=== PATIENT | male | born 1985 | race Caucasian/White ===

== ENCOUNTER 2017-04-13 11:11 | Emergency (ER) | payer BC ==
[2017-04-13] MEDS ORDERED: LIDOCAINE 1% 2 ML VIAL ONE (11:54)
--- NOTE | 2017-04-13 12:03 | ED Physician Documentation ---
PD HPI UPPER EXT INJURY - Stated complaint Stated Complaint: LEFT FINGER LAC - Chief complaint Chief Complaint: Laceration - History obtained from History obtained from: Patient - History of Present Illness Location: Left, Finger (ring) Type of injury: Laceration Where injury occurred: Home Timing - onset: Today Timing - duration: Minutes Timing - details: Abrupt onset, Still present Improved by: Rest, Immobilization Worsened by: Moving, Palpating Similar symptoms before: Has not had sx before Recently seen: Not recently seen - Additonal information Additional information: 31-year-old male was using a knife to cut a hose and his hand slipped and he lacerated the dorsal surface of his left ring finger. Review of Systems Constitutional: denies: Fever Respiratory: denies: Cough GI: denies: Vomiting Skin: reports: Laceration (s) Musculoskeletal: reports: Extremity pain. denies: Neck pain, Back pain PD PAST MEDICAL HISTORY - Past Medical History Past Medical History: Yes Other Past Medical History: sleep apnea - Past Surgical History Past Surgical History: Yes Ortho: Other - Present Medications Home Medications: Ambulatory Orders Medication Instructions Recorded Confirmed traMADol [Ultram] 50 mg PO DAILY 04/13/17 04/13/17 - Allergies Allergies/Adverse Reactions: Allergies Allergy/AdvReac Type Severity Reaction Status Date / Time Sulfa (Sulfonamide Allergy Hives Verified 04/13/17 11:18 Antibiotics) - Social History Does the pt smoke?: No Smoking Status: Never smoker Does the pt drink ETOH?: Yes ETOH Use: Beer, Liquor Does the pt have substance abuse?: No - Immunizations Immunizations are current?: Yes - POLST Patient has POLST: No PD ED PE NORMAL - Vitals Vital signs reviewed: Yes (tachy and hypertensive) - General General: Alert and oriented X 3, No acute distress, Well developed/nourished - HEENT HEENT: Atraumatic, PERRL - Neck Neck: Supple, no meningeal sign - Respiratory Respiratory: No respiratory distress - Derm Derm: Normal color, Warm and dry, No rash - Extremities Extremities: No deformity, No edema, Other (There is a 2 cm laceration over the dorsal surface of the left ring finger over the PIP. The laceration is a flap it does not involve deeper structures in the distal neurovascular components are intact.) - Neuro Neuro: Alert and oriented X 3 Eye Opening: Spontaneous Motor: Obeys Commands Verbal: Oriented GCS Score: 15 - Psych Psych: Normal mood, Normal affect Results - Vitals Vitals: Vital Signs - 24 hr 04/13/17 04/13/17 11:15 12:20 Temperature 36.2 C L Heart Rate 115 H 91 Respiratory 18 20 Rate Blood Pressure 161/94 H 109/46 L O2 Saturation 97 97 Procedures - Laceration (location) left ring finger Length in cm: 2 Wound type: Irregular, Flap Neurovascular status: Sensory intact, Motor intact, Vascular intact Anesthesia: Lidocaine 1% Wound Preparation: Hibiclens, Irrigated copiously NS, Wound explored, To the base Skin layer closure: Nylon, Interrupted, Size #-0 - enter number ([id number]) Other: Patient tolerated well, No complications, Neurovascular intact, Dressing applied, Tetanus UTD Complexity: Simple PD MEDICAL DECISION MAKING - ED course Complexity details: considered differential, d/w patient ED course: 31-year-old male with a laceration to his finger has sutures placed will have him in place for 10 days. Departure - Departure Disposition: 01 Home, Self Care Clinical Impression: Finger laceration Qualifiers: Encounter type: initial encounter Finger: ring finger Damage to nail status: without damage Foreign body presence: without foreign body Laterality: left Qualified Code(s): S61.215A - Laceration without foreign body of left ring finger without damage to nail, initial encounter Instructions: ED Laceration Hand Follow-Up: Key Barros PA [Primary Care Provider] - Comments: Today in the Emergency Department your blood pressure was elevated. This can happen from the stress of the visit itself, from a current illness or circumstance or from uncontrolled hypertension. If you take blood pressure medications take your usual mediations, have your blood pressure re-checked in an appropriate setting and follow up any elevation with your primary care doctor. These sutures will need to be removed in 10 days. Discharge Date/Time: 04/13/17 12:21
[2017-04-13 12:21] VITALS: BP 109/46
== END 2017-04-13 12:21 | disposition home or self-care (01) ==
LOC: ED 11:11
DX: S61.215A Laceration without foreign body of left ring finger without damage to nail, initial encounter (principal); W26.0XXA Contact with knife, initial encounter; Y92.019 Unspecified place in single-family (private) house as the place of occurrence of the external cause; R03.0 Elevated blood-pressure reading, without diagnosis of hypertension
CPT/HCPCS: 12001; 99283

== ENCOUNTER 2020-05-19 19:34 | Outpatient (CLI) | payer BC | END 2020-05-19 19:35 | disposition home or self-care (01) | LOC: COV 19:34 | PROVIDERS: ATTEND Family Medicine | DX: Z20.822 Contact with and (suspected) exposure to COVID-19 (principal) ==

== ENCOUNTER 2020-11-17 14:25 | Outpatient (CLI) | payer OTHER | END 2020-11-17 14:26 | disposition home or self-care (01) | LOC: CAM 14:25 | PROVIDERS: ATTEND Internal Medicine | DX: R51.9 Headache, unspecified (principal) | CPT/HCPCS: 97810; 97811 ==

== ENCOUNTER 2020-11-24 14:12 | Outpatient (CLI) | payer OTHER | END 2020-11-24 14:13 | disposition home or self-care (01) | LOC: CAM 14:12 | PROVIDERS: ATTEND Internal Medicine | DX: R51.9 Headache, unspecified (principal) | CPT/HCPCS: 97810; 97811 ==

== ENCOUNTER 2020-11-29 15:28 | Outpatient (CLI) | payer BC | END 2020-11-29 15:29 | disposition home or self-care (01) | LOC: COV 15:28 | PROVIDERS: ATTEND Family Medicine | DX: Z20.822 Contact with and (suspected) exposure to COVID-19 (principal) ==

== ENCOUNTER 2020-12-08 15:10 | Outpatient (CLI) | payer OTHER | END 2020-12-08 15:11 | disposition home or self-care (01) | LOC: CAM 15:10 | PROVIDERS: ATTEND Internal Medicine | DX: R51.9 Headache, unspecified (principal) | CPT/HCPCS: 97810; 97811 ==

== ENCOUNTER 2020-12-15 15:37 | Outpatient (CLI) | payer OTHER | END 2020-12-15 15:38 | disposition home or self-care (01) | LOC: CAM 15:37 | PROVIDERS: ATTEND Internal Medicine | DX: R51.9 Headache, unspecified (principal) | CPT/HCPCS: 97810; 97811 ==

== ENCOUNTER 2020-12-29 14:24 | Outpatient (CLI) | payer OTHER | END 2020-12-29 14:25 | disposition home or self-care (01) | LOC: CAM 14:24 | PROVIDERS: ATTEND Internal Medicine | DX: R51.9 Headache, unspecified (principal) | CPT/HCPCS: 97810; 97811 ==

== ENCOUNTER 2021-01-16 14:12 | Outpatient (CLI) | payer OTHER | END 2021-01-16 14:13 | disposition home or self-care (01) | LOC: CAM 14:12 | PROVIDERS: ATTEND Internal Medicine | DX: R51.9 Headache, unspecified (principal) | CPT/HCPCS: 97810; 97811 ==

== ENCOUNTER 2021-04-10 12:40 | Outpatient (CLI) | payer OTHER | END 2021-04-10 12:41 | disposition home or self-care (01) | LOC: CAM 12:40 | PROVIDERS: ATTEND Internal Medicine | DX: R51.9 Headache, unspecified (principal); F41.9 Anxiety disorder, unspecified | CPT/HCPCS: 97810; 97811 ==

== ENCOUNTER 2021-05-08 12:57 | Outpatient (CLI) | payer OTHER | END 2021-05-08 12:58 | disposition home or self-care (01) | LOC: CAM 12:57 | PROVIDERS: ATTEND Internal Medicine | DX: R51.9 Headache, unspecified (principal); F41.9 Anxiety disorder, unspecified | CPT/HCPCS: 97810; 97811 ==

== ENCOUNTER 2021-05-22 12:57 | Outpatient (CLI) | payer OTHER | END 2021-05-22 12:58 | disposition home or self-care (01) | LOC: CAM 12:57 | PROVIDERS: ATTEND Internal Medicine | DX: R51.9 Headache, unspecified (principal); F41.9 Anxiety disorder, unspecified | CPT/HCPCS: 97810; 97811 ==